=== PATIENT | male | born 1995 | race Caucasian/White ===

== ENCOUNTER → 2020-08-05 09:36 | Outpatient (CLI) | payer OTHER, SELFPAY ==
--- NOTE | 2020-08-05 | DI.US.S_ITS ---
PROCEDURE: US ABDOMEN COMPLETE INDICATIONS: Abdominal pain TECHNIQUE: Real-time scanning was performed of the abdominal and retroperitoneal organs, with image documentation. COMPARISON: None. FINDINGS: Liver: Liver is normal in size and homogeneous in echotexture. Gallbladder: No findings of gallstones or sludge are seen. The gallbladder wall is not thickened, measuring 3 mm or less. No specific pericholecystic fluid is seen. The sonographic Henry sign is negative. Biliary ducts: Intrahepatic bile ducts are non-dilated. Extrahepatic bile duct caliber measures 2 mm. Normal is 6-7 mm or less in diameter, or 10 mm or less post-cholecystectomy. Pancreas: Visualized portions of the pancreas are sonographically normal. Spleen: Spleen is normal in size and homogeneous in echotexture. Kidneys: Kidneys are within normal limits for size. The kidneys demonstrate normal echotexture. Right kidney measures 9.1 cm long; left kidney measures 10.6 cm long. No hydronephrosis or nephrolithiasis. No solid masses. Aorta: Visualized aorta is normal in caliber at less than 3 cm. Iliacs: Not seen. IVC: Intrahepatic inferior vena cava is patent. Miscellaneous: No free abdominal fluid. IMPRESSION: No imaging explanation is found for this patient's presenting symptoms. Dictated by: Donal Miramontes M.D. on 08/05/2020 at 10:41 Approved by: Donal Miramontes M.D. on 08/05/2020 at 10:42
== END ==
PROVIDERS: PCP Naturopath; Referring Provider Naturopath; Visit Provider Naturopath
DX: R10.9 Unspecified abdominal pain (principal)
CPT/HCPCS: 76700